=== PATIENT | male | born 1970 | race Caucasian/White ===

== ENCOUNTER 2020-07-09 09:49 | Emergency (ER) | payer BC ==
[~2020-07-09] VITALS: Ht 193 cm; Wt 107.5 kg
--- NOTE | 2020-07-09 09:50 | NUR ---
ER BED 3 PT BIBRA. PER REPORT PT OVERDOSED ON FENTANYL. ACCORDING TO MEDICS, UPON ARRIVAL PT WAS UNCONSCIOUS, SO THEY GAVE IMG OF NARCAN, TO WHICH THE PT RESPONDED WELL TO AND SUDDENLY HE WAS AROUSABLE. VS CHECKED. AWAITING MD SENA. Addendum: 07/09/20 at 1010 by DCABANOS PT DENIES SI OR HI. PER PT HE TOOK FENTANYL JUST FOR FUN.
--- NOTE | 2020-07-09 11:06 | NUR ---
DC HOME Patient discharged to home in stable condition. Written and verbal after care instructions given. Patient verbalizes understanding of instruction. IV removed. Catheter intact and site benign. Pressure and 4x4 applied to site. No bleeding noted.
[2020-07-09 11:09] VITALS: BP 120/72
== END 2020-07-09 11:10 | disposition home or self-care (01) ==
LOC: ER 09:52
DX: T40.411A Poisoning by fentanyl or fentanyl analogs, accidental (unintentional), initial encounter (principal); Y92.89 Other specified places as the place of occurrence of the external cause